=== PATIENT | female | born 1950 | race African-American/Black ===

== ENCOUNTER 2019-12-10 20:14 | Inpatient (IN) | payer MEDICARE, OTHER ==
[~2019-12-10] VITALS: Ht 152.4 cm; Wt 64.4 kg
[2019-12-10 23:07] LABS: HEMATOCRIT 32.1 % (36.0-48.0); HEMOGLOBIN 10.7 g/dL (12.0-16.0); MEAN CORPUSCULAR HEMOGLOBIN 28.5 pg (28.0-32.0); MEAN CORPUSCULAR VOLUME 85.1 fL (81.0-99.0); PLATELET 230 x1000/uL (130-400); RED BLOOD CELL COUNT 3.77 mill/uL (4.2-5.4); RED CELL DISTRIBUTION WIDTH 14.6 % (11.6-14.6)
[2019-12-10 23:16] LABS: CHLORIDE 110 mEq/L (98-107)
[2019-12-11 02:52] LABS: CREATINE KINASE 463 IU/L (26-192)
[2019-12-11 12:00] VITALS: BP 131/85
[2019-12-11 13:33] VITALS: BP 131/85
[2019-12-11] MEDS ORDERED: LORAZEPAM 2MG/ML CPJ IV PRN (14:30)
[2019-12-11] MEDS ORDERED: DOCUSATE SODIUM 100MG CAPSULE PO PRN (14:30)
[2019-12-11] MEDS ORDERED: MAGNESIUM/ALUMINUM HYDROXIDE/SIMETHICONE 30ML UDC PO PRN (14:30)
[2019-12-11] MEDS ORDERED: HYDROCODONE/ACETAMINOPHEN 5/325MG TABLET PO PRN (14:30)
[2019-12-11] MEDS ORDERED: MORPHINE SULFATE 2 MG/ML CPJ (NOT FOR IM USE) IV PRN (14:30)
[2019-12-11] MEDS ORDERED: IPRATROPIUM/ALBUTEROL 0.5-3(2.5)MG/3ML NEB NEB PRN (14:30)
[2019-12-11] MEDS ORDERED: ACETAMINOPHEN 325MG TABLET PO PRN (14:30)
[2019-12-11] MEDS ORDERED: NA PHOS,M-B/NA PHOS,DI-BA ENEMA 118ML PR PRN (14:30)
[2019-12-11] MEDS ORDERED: ONDANSETRON HCL 4MG/2ML INJ IV PRN (14:30)
[2019-12-11] MEDS ORDERED: DIPHENHYDRAMINE 50MG/ML VIAL IV PRN (14:30)
[2019-12-11] MEDS ORDERED: GUAIFENESIN 200MG/10ML SUGAR FREE UDC PO PRN (14:30)
[2019-12-11 16:00] VITALS: BP 136/86
[2019-12-11 17:05] LABS: CHLORIDE 108 mEq/L (98-107)
[2019-12-11 20:00] VITALS: BP 132/82
[2019-12-11] MEDS ORDERED: POTASSIUM CHLORIDE 20MEQ TABLET SR PO NR (22:27)
[2019-12-12] VITALS: BP 144/86
[2019-12-12 04:00] VITALS: BP 139/84
[2019-12-12 08:00] VITALS: BP 157/91
[2019-12-12] MEDS: ASPIRIN 81MG EC TABLET PO SCH (08:49)
[2019-12-12 08:57] LABS: HEMATOCRIT. 29.2 % (36.0-48.0); HEMOGLOBIN. 9.6 g/dL (12.0-16.0); MEAN CORPUSCULAR VOLUME 85.2 fL (81.0-99.0); MEAN PLATELET VOLUME 8.2 fl (7.4-10.4); PLATELET 218 x1000/uL (130-400); RED BLOOD CELL COUNT 3.42 mill/uL (4.2-5.4); RED CELL DISTRIBUTION WIDTH 14.6 % (11.6-14.6)
[2019-12-12 09:09] LABS: CHLORIDE 110 mEq/L (98-107)
[2019-12-12 09:18] LABS: LDL CHOLESTEROL 117 mg/dL (5-100)
[2019-12-12 09:19] LABS: HDL CHOLESTEROL 22 mg/dL (40-59); T4 FREE 1.77 ng/dL (0.76-1.46)
[2019-12-12] MEDS: CLONIDINE 0.1MG TABLET PO PRN (09:50)
[2019-12-12 12:00] VITALS: BP 116/78
[2019-12-12] MEDS: ENOXAPARIN 40MG/0.4ML SYR SUBCUT SCH (14:39)
[2019-12-12 16:00] VITALS: BP 141/78
[2019-12-12 20:00] VITALS: BP 136/76
[2019-12-12 21:36] LABS: PLATELET ESTIMATE NORMAL
[2019-12-13] VITALS: BP 138/88
[2019-12-13 04:00] VITALS: BP 179/89
[2019-12-13 08:00] VITALS: BP 151/88
[2019-12-13] MEDS: ASPIRIN 81MG EC TABLET PO SCH (09:11)
[2019-12-13 12:00] VITALS: BP 135/92
[2019-12-13] MEDS: ENOXAPARIN 40MG/0.4ML SYR SUBCUT SCH (15:42)
[2019-12-13 16:00] VITALS: BP 142/90
[2019-12-14 08:00] VITALS: BP 165/110
[2019-12-14] MEDS: CLONIDINE 0.1MG TABLET PO PRN ×2 (08:55→18:03)
[2019-12-14] MEDS: ASPIRIN 81MG EC TABLET PO SCH (08:55)
[2019-12-14 10:00] VITALS: BP 124/75
[2019-12-14 12:00] VITALS: BP 133/67
[2019-12-14] MEDS: ENOXAPARIN 40MG/0.4ML SYR SUBCUT SCH (14:19)
[2019-12-14 16:00] VITALS: BP 158/89
[2019-12-14 19:02] VITALS: BP 142/97
[2019-12-15] VITALS: BP 162/87
[2019-12-15 04:00] VITALS: BP 146/99
[2019-12-15] MEDS: CLONIDINE 0.1MG TABLET PO PRN ×2 (04:13→18:29)
[2019-12-15 08:00] VITALS: BP 137/91
[2019-12-15] MEDS: ASPIRIN 81MG EC TABLET PO SCH (08:43)
[2019-12-15 12:00] VITALS: BP 125/77
[2019-12-15 16:00] VITALS: BP 147/90
[2019-12-15] MEDS: ENOXAPARIN 40MG/0.4ML SYR SUBCUT SCH (18:29)
[2019-12-15 20:00] VITALS: BP 129/76
[2019-12-16] VITALS: BP 152/87
[2019-12-16 04:00] VITALS: BP 155/78
[2019-12-16] MEDS: ASPIRIN 81MG EC TABLET PO SCH (08:57)
[2019-12-16 12:00] VITALS: BP 147/79
[2019-12-16 16:24] VITALS: BP 145/81
[2019-12-16 17:14] VITALS: BP 145/87
[2019-12-16] MEDS: ENOXAPARIN 40MG/0.4ML SYR SUBCUT SCH (18:23)
[2019-12-16 20:00] VITALS: BP 166/94
== END 2019-12-17 00:20 | disposition home or self-care (01) | DRG 556 ==
LOC: ER 20:14 → 6EST 12-11 12:00 → EDBEDREQ 12-11 12:02 → ENRESERV 12-11 12:28 → 6EST 12-13 18:54
PROVIDERS: ADMIT Internal Medicine; ATTEND Internal Medicine
DX: M25.561 Pain in right knee (principal); R64 Cachexia; E44.1 Mild protein-calorie malnutrition; M25.562 Pain in left knee; D64.9 Anemia, unspecified; E87.6 Hypokalemia; M48.00 Spinal stenosis, site unspecified; W18.30XA Fall on same level, unspecified, initial encounter; Z96.653 Presence of artificial knee joint, bilateral; M47.9 Spondylosis, unspecified; Z20.828 Contact with and (suspected) exposure to other viral communicable diseases; F03.90 Unspecified dementia, unspecified severity, without behavioral disturbance, psychotic disturbance, mood disturbance, and anxiety; L89.159 Pressure ulcer of sacral region, unspecified stage; M19.90 Unspecified osteoarthritis, unspecified site; R26.81 Unsteadiness on feet; R62.7 Adult failure to thrive; Z68.27 Body mass index [BMI] 27.0-27.9, adult
CPT/HCPCS: 36415; 73560; 80048; 80053; 80061; 82550; 82962; 84439; 84443; 84484; 85025; 85027; 87635; 93005; 97116; 97162; 97530; 99285; J1650